=== PATIENT | female | born 1995 | race Caucasian/White ===

== ENCOUNTER 2017-03-07 13:17 | Emergency (ER) | payer OTHER ==
[~2017-03-07] VITALS: Ht 172.7 cm; Wt 88.0 kg
[2017-03-07 13:20] VITALS: Ht 172.7 cm; Wt 88.0 kg
--- NOTE | 2017-03-07 15:07 | ERD ---
ER Documentation Chief Complaint Chief Complaint c/o cough, fever, sore throat x 2 wks. HPI 22-year-old female who presents emergency department for cough, fever, sore throat that is on and off for 2 weeks. LMP: 02/14/2017. A0. Denies headache, dizziness, changes in vision, neck pain, difficulty swallowing, loss of appetite, shoulder pain, chest pain, back pain, abdominal pain, nausea, vomiting, constipation, diarrhea, urinary symptoms, or possibility of being , loss of bowel bladder control, changes in diet, trauma, injury, falls, recent travel, recent long travel, recent exposure to any illness, recent antibiotic use the last 3 months, chills. Stated that she has past medical history of autoimmune disorder which she does not know specifically what type. ROS All systems reviewed and are negative except as per history of present illness. Medications Home Meds Active Scripts Ibuprofen* (Motrin*) 800 Mg Tab, 800 MG PO Q8 Y for PAIN AND OR ELEVATED TEMP, # 30 TAB Prov:JIHAN CHASE 03/07/17 Acetaminophen* (Tylenol*) 325 Mg Tablet, 2 TAB PO Q6 Y for PAIN AND OR ELEVATED TEMP, #20 TAB Prov:JIHAN CHASE 03/07/17 Ciprofloxacin Hcl/Dexameth (Ciprodex Otic Suspension) 7.5 Ml Drops.susp, 4 DROP BOTH EARS BID for 7 Days, EA Prov:JIHAN CHASE 03/07/17 Amoxicillin/Potassium Clav (Amox-Clav 875-125 mg Tablet) 875-125 mg Tab, 1 TAB PO BID for 10 Days, #20 TAB Prov:JIHAN CHASE 03/07/17 Physical Exam Vitals Vital Signs Date Time Temp Pulse Resp B/P Pulse Ox O2 Delivery O2 Flow Rate FiO2 03/07/17 13:20 97.2 74 18 129/71 98 Physical Exam Const: Well-appearing. Not in acute respiratory distress. Head: Atraumatic Eyes: Normal Conjunctiva. PERRLA. No pain in eye movement. No visible field loss. Extraocular movement of her eyes within normal limits. ENT: Normal External Ears, Nose and Mouth. Left ear: External canal is erythematous. TM is erythematous. No bleeding. No discharge. Right ear: External canal is erythematous. TM is erythematous. No bleeding. No discharge. Throat: Uvula is midline and not displaced. Tonsils are +1 bilaterally with mild redness but no exudates. Tolerating secretions. Patent airway. Neck: Full range of motion..~ No meningismus. No neck stiffness. No signs of meningeal irritation.. Resp: Clear to auscultation bilaterally Cardio: Regular rate and rhythm, no murmurs Abd: Soft, non tender, non distended. Normal bowel sounds Skin: No petechiae or rashes. Back: No midline or flank tenderness Ext: No cyanosis, or edema Neur: Awake and alert. No neurological deficits. Romberg test is negative. Psych: Normal Mood and Affect Procedures/MDM Chest x-ray: No evidence for active cardiopulmonary disease. No radiographic evidence for pneumonia. POC urine : Negative. I have low suspicion for sepsis, meningitis, serious or severe bacterial infection, pneumonia given the patient's vital signs and is unremarkable, there is no neck stiffness, no neurological deficits, lung sounds are clear to auscultation. Final diagnosis: Otitis media. Otitis externa. Prescription: Augmentin. Cipro otic drops. Motrin. Tylenol. Tessalon Perles. Follow-up with PCP in the next 3-4 days. Come back here in the emergency department for any new symptoms or any worsening symptoms. All questions and concerns are answered. Patient verbalized understanding and agreed with the plan of care. Hemodynamically stable on discharge. Departure Diagnosis: Primary Impression: Otitis media Additional Impression: Otitis externa Condition: Stable Additional Instructions: Follow-up with PCP in the next 3-4 days. Come back here in the emergency department for any new symptoms or any worsening symptoms. All questions and concerns are answered. Patient verbalized understanding and agreed with the plan of care JIHAN CHASE Mar 07, 2017 15:07
[2017-03-07] MEDS ORDERED: CIPR7.5D4 BOTH EARS (16:11)
[2017-03-07] MEDS ORDERED: AMOX1TAB10 PO (16:11)
[2017-03-07] MEDS ORDERED: ACET325T33 PO (16:11)
[2017-03-07] MEDS ORDERED: IBUP800T25 PO (16:12)
--- NOTE | 2017-03-07 16:47 | RADRPT ---
PROCEDURE: XR Chest. CLINICAL INDICATION: cough TECHNIQUE: PA and Lateral views of the chest were obtained. COMPARISON: None. FINDINGS: The cardiomediastinal silhouette is within normal limits. The lungs are clear. No signs of pleural f luid or pneumothorax are seen. The osseous structures and soft tissues are unremarkable. IMPRESSION: No evidence for active cardiopulmonary disease. No radiographic evidence for pneumonia. Physician Lacie Date Time Electronically viewed and signed by Angel Luis Busch Physician on 03/07/2017 16:47 ML/
== END 2017-03-07 17:14 | disposition home or self-care (01) ==
LOC: FTE 13:17
DX: H66.93 Otitis media, unspecified, bilateral (principal); H60.93 Unspecified otitis externa, bilateral
CPT/HCPCS: 71020